=== PATIENT | female | born 1970 | race Native Hawaiian/Other Pacific Islander ===

== ENCOUNTER 2018-05-02 22:06 | Emergency (ER) | payer OTHER ==
[~2018-05-02] VITALS: Ht 160 cm; Wt 127.9 kg
[~2018-05-02 22:06] MED LIST: ACET-655 PO; BUMETANIDE2 MG PO; LEVO0.1T6 PO; LOFIBRA160 MG OR; MECL25TA84 PO; METF500T PO; VIIBRYD20 MG OR; ZESTRIL30 MG PO
[2018-05-02 23:23] LABS: PLATELET COUNT 243 K/uL (152-353)
[2018-05-02 23:36] LABS: POTASSIUM 3.8 mmol/L (3.6-5.2)
[2018-05-03 01:05] VITALS: BP 130/81; TEMP 97.3
== END 2018-05-03 01:13 | disposition home or self-care (01) ==
LOC: ED 22:06
DX: K52.9 Noninfective gastroenteritis and colitis, unspecified (principal)
CPT/HCPCS: 36415; 80053; 84443; 84550; 85027; 86318; 99283

== ENCOUNTER 2018-06-27 09:54 | Outpatient (CLI) | payer OTHER | END 2018-06-27 18:59 | disposition home or self-care (01) | LOC: RAD 09:54 | DX: R06.02 Shortness of breath (principal) ==

== ENCOUNTER 2020-10-24 08:24 | Outpatient (CLI) | payer OTHER ==
[2020-10-24 08:56] LABS: PLATELET COUNT 202 K/uL (152-353)
[2020-10-24 09:14] LABS: POTASSIUM 4.3 mmol/L (3.6-5.2)
== END 2020-10-24 19:21 | disposition home or self-care (01) ==
LOC: LABW 08:24
PROVIDERS: ATTEND Internal Medicine
DX: E78.9 Disorder of lipoprotein metabolism, unspecified (principal); E78.49 Other hyperlipidemia; R73.9 Hyperglycemia, unspecified; E03.9 Hypothyroidism, unspecified; D64.9 Anemia, unspecified
CPT/HCPCS: 36415; 80053; 80061; 83036; 83540; 83550; 84439; 84443; 85027